=== PATIENT | female | born 1930 | race Caucasian/White ===

== ENCOUNTER 2021-10-30 15:08 | Emergency (ER) | payer MEDICARE, OTHER ==
[~2021-10-30] VITALS: Ht 170.2 cm; Wt 55.6 kg
[2021-10-30] MEDS ORDERED: ASPIRIN 325 MG TABLET PO ONE (15:30)
[2021-10-30] MEDS ORDERED: IV RINGERS,LACTATED 500ML 500 ML IV ONE (15:45)
[2021-10-30] MEDS ORDERED: LABETALOL 20 MG/4 ML DISP.SYRIN. IVP ONE (15:45)
[2021-10-30 15:46] LABS: BASO % 1 % (0-3); EOS # 0.3 x10^3/uL (0.0-0.7); EOS % 4 % (0-3); HEMATOCRIT 36.3 % (36.0-47.0); HEMOGLOBIN 12.7 g/dL (12.0-15.5); LYMPH # 1.7 x10^3/uL (1.0-4.8); LYMPH % 25 % (24-48); MEAN CORPUSCULAR HEMOGLOBIN 33 pg (25-35); MEAN CORPUSCULAR HGB CONC 35 g/dL (31-37); MEAN CORPUSCULAR VOLUME 93 fL (79-100); MONO # 0.6 x10^3/uL (0.0-1.1); MONO % 9 % (0-9); NEUT % 61 % (31-73); PLATELET COUNT 160 x10^3/uL (140-400); RED BLOOD COUNT 3.89 x10^6/uL (3.50-5.40); RED CELL DISTRIBUTION WIDTH 13.5 % (11.5-14.5); WHITE BLOOD COUNT 6.6 x10^3/uL (4.0-11.0)
[2021-10-30 15:55] LABS: CALCIUM 9.5 mg/dL (8.5-10.1); CREATININE 1.5 mg/dL (0.6-1.0); GFR 32.7; POTASSIUM 3.5 mmol/L (3.5-5.1)
[2021-10-30 16:00] LABS: ALBUMIN 4.4 g/dL (3.4-5.0); ALBUMIN/GLOBULIN RATIO 1.2 (1.0-1.7); MAGNESIUM 2.2 mg/dL (1.8-2.4); TOTAL BILIRUBIN 0.6 mg/dL (0.2-1.0)
--- NOTE | 2021-10-30 16:31 | RAD ---
EXAM: XR CHEST 1V 10/30/2021 4:02 PM CLINICAL INDICATION: hypertension COMPARISON: None. TECHNIQUE: AP upright view of the chest FINDINGS: The heart is normal in size. Lungs are clear. No consolidation, pleural effusion, or pneum othorax. IMPRESSION: No acute abnormality. Electronically signed by: Catia Mason MD (10/30/2021 4:29 PM) [facility]
--- NOTE | 2021-10-30 17:29 | PHYS DOC ---
Past Medical History Past Surgical History: No Surgical History (AKANKSHA AGUILAR MD) Smoking Status: Never Smoker Alcohol Use: None (AKANKSHA AGUILAR MD) General Adult EDM: Chief Complaint: HYPERTENSION HPI: HPI: Patient is a 89 year old F who presents with elevated blood pressure. Patient states that she did not take her blood pressure medication last night. She is presents with blood pressure reading of 200/100. She is asymptomatic. Otherwise she is doing well. [] (AKANKSHA AGUILAR MD) Review of Systems: Review of Systems: Constitutional: Denies fever or chills. [] Eyes: Denies change in visual acuity. [] HENT: Denies nasal congestion or sore throat. [] Respiratory: Denies cough or shortness of breath. [] Cardiovascular: Denies chest pain or edema. [] GI: Denies abdominal pain, nausea, vomiting, bloody stools or diarrhea. [] : Denies dysuria. [] Musculoskeletal: Denies back pain or joint pain. [] Integument: Denies rash. [] Neurologic: Denies headache, focal weakness or sensory changes. [] Endocrine: Denies polyuria or polydipsia. [] Lymphatic: Denies swollen glands. [] Psychiatric: Denies depression or anxiety. [] (AKANKSHA AGUILAR MD) Heart Score: C/O Chest Pain: No Risk Factors: Risk Factors: DM, Current or recent (<one month) smoker, HTN, HLP, family history of CAD, obesity. Risk Scores: Score 0 - 3: 2.5% MACE over next 6 weeks - Discharge Home Score 4 - 6: 20.3% MACE over next 6 weeks - Admit for Clinical Observation Score 7 - 10: 72.7% MACE over next 6 weeks - Early Invasive Strategies (AKANKSHA AGUILAR MD) C/O Chest Pain: No (NEIL GREEN MD) Current Medications: Current Medications Medications (Trade) Dose Ordered Sig/Margie Start Time Stop Time Status Last Admin Dose Admin Aspirin (Ryan Aspirin) 325 mg 1X ONCE 10/30/21 15:30 10/30/21 15:31 DC 10/30/21 15:44 325 MG Labetalol HCl (Normodyne Iv Push) 20 mg 1X ONCE 10/30/21 15:45 10/30/21 15:46 DC 10/30/21 15:44 20 MG Ringer's Solution 500 ml @ 500 mls/hr 1X ONCE 10/30/21 15:45 10/30/21 16:44 DC 10/30/21 15:45 500 MLS/HR (AKANKSHA AGUILAR MD) Allergies: Allergies: Allergies Coded Allergies Type Severity Reaction Last Updated Verified No Known Drug Allergies 10/30/21 No (AKANKSHA AGUILAR MD) Physical Exam: PE: Constitutional: Well developed, well nourished, no acute distress, non-toxic appearance. [] HENT: Normocephalic, atraumatic, bilateral external ears normal, oropharynx moist, no oral exudates, nose normal. [] Eyes: PERRLA, EOMI, conjunctiva normal, no discharge. [] Neck: Normal range of motion, no tenderness, supple, no stridor. [] Cardiovascular:Heart rate regular rhythm, no murmur [] Lungs & Thorax: Bilateral breath sounds clear to auscultation [] Abdomen: Bowel sounds normal, soft, no tenderness, no masses, no pulsatile masses. [] Skin: Warm, dry, no erythema, no rash. [] Back: No tenderness, no CVA tenderness. [] Extremities: No tenderness, no cyanosis, no clubbing, ROM intact, no edema. [] Neurologic: Alert and oriented X 3, normal motor function, normal sensory function, no focal deficits noted. [] Psychologic: Affect normal, judgement normal, mood normal. [] (AKANKSHA AGUILAR MD) Current Patient Data: Labs: Laboratory Tests Test 10/30/21 15:20 White Blood Count 6.6 x10^3/uL (4.0-11.0) Red Blood Count 3.89 x10^6/uL (3.50-5.40) Hemoglobin 12.7 g/dL (12.0-15.5) Hematocrit 36.3 % (36.0-47.0) Mean Corpuscular Volume 93 fL (79-100) Mean Corpuscular Hemoglobin 33 pg (25-35) Mean Corpuscular Hemoglobin Concent 35 g/dL (31-37) Red Cell Distribution Width 13.5 % (11.5-14.5) Platelet Count 160 x10^3/uL (140-400) Neutrophils (%) (Auto) 61 % (31-73) Lymphocytes (%) (Auto) 25 % (24-48) Monocytes (%) (Auto) 9 % (0-9) Eosinophils (%) (Auto) 4 % (0-3) H Basophils (%) (Auto) 1 % (0-3) Neutrophils # (Auto) 4.0 x10^3/uL (1.8-7.7) Lymphocytes # (Auto) 1.7 x10^3/uL (1.0-4.8) Monocytes # (Auto) 0.6 x10^3/uL (0.0-1.1) Eosinophils # (Auto) 0.3 x10^3/uL (0.0-0.7) Basophils # (Auto) 0.0 x10^3/uL (0.0-0.2) Sodium Level 142 mmol/L (136-145) Potassium Level 3.5 mmol/L (3.5-5.1) Chloride Level 102 mmol/L (98-107) Carbon Dioxide Level 30 mmol/L (21-32) Anion Gap 10 (6-14) Blood Urea Nitrogen 30 mg/dL (7-20) H Creatinine 1.5 mg/dL (0.6-1.0) H Estimated GFR (Cockcroft-Gault) 32.7 BUN/Creatinine Ratio 20 (6-20) Glucose Level 109 mg/dL (70-99) H Calcium Level 9.5 mg/dL (8.5-10.1) Magnesium Level 2.2 mg/dL (1.8-2.4) Total Bilirubin 0.6 mg/dL (0.2-1.0) Aspartate Amino Transferase (AST) 33 U/L (15-37) Alanine Aminotransferase (ALT) 24 U/L (14-59) Alkaline Phosphatase 88 U/L (46-116) Troponin I High Sensitivity 17 ng/L (4-50) Total Protein 8.0 g/dL (6.4-8.2) Albumin 4.4 g/dL (3.4-5.0) Albumin/Globulin Ratio 1.2 (1.0-1.7) Lipase 272 U/L (73-393) Thyroid Stimulating Hormone (TSH) 2.037 uIU/mL (0.358-3.74) Laboratory Tests 10/30/21 15:20 Laboratory Tests 10/30/21 15:20 Vital Signs: Vital Signs Date Time Temp Pulse Resp B/P (MAP) Pulse Ox O2 Delivery O2 Flow Rate FiO2 10/30/21 16:31 73 20 169/82 (111) 98 Room Air 10/30/21 15:15 98.1 98.1 (AKANKSHA AGUILAR MD) EKG: EKG: EKG within normal limits [] (AKANKSHA AGUILAR MD) Radiology/Procedures: Radiology/Procedures: Chest x-ray no acute abnormalities [] Impression: Hypertensive urgency (AKANKSHA AGUILAR MD) Course & Med Decision Making: Course & Med Decision Making Pertinent Labs and Imaging studies reviewed. (See chart for details) 89-year-old female with elevated blood pressure secondary to not taking her blood pressure medications last night. Patient's presents with elevated blood pressure today. Patient is asymptomatic. Lab abnormalities are absent. Patient states that she would like her urine tested, however patient is unable to produce urine. Patient transferred to Dr. Green at 1800 at the end of my shift. Pending urinalysis. (AKANKSHA AGUILAR MD) Course & Med Decision Making Accepted patient care at shift change pending urine Patient admits to trying to urinate. Patient states that she does not want to stay to try again I will follow-up with her primary care provider. Patient is asking to be discharged home (NEIL GREEN MD) Dragon Disclaimer: Dragon Disclaimer: This electronic medical record was generated, in whole or in part, using a voice recognition dictation system. (AKANKSHA AGUILAR MD) Departure Departure Impression: Primary Impression: Hypertension Disposition: 01 HOME / SELF CARE / HOMELESS Condition: STABLE Referrals: DONELL HAWKINS MD (PCP) Patient Instructions: Managing Your High Blood Pressure AKANKSHA AGUILAR MD October 30, 2021 17:29 NEIL GREEN MD October 30, 2021 18:12
[2021-10-30 17:31] VITALS: BP 164/81
== END 2021-10-30 18:15 | disposition home or self-care (01) ==
LOC: ER 15:08
DX: I10 Essential (primary) hypertension (principal)
CPT/HCPCS: 36415; 71045; 80053; 83690; 83735; 84443; 84484; 85025; 96374; 99284; J3490; J7120; 96361